=== PATIENT | female | born 1980 ===

== ENCOUNTER 2025-05-15 07:00 | Day surgery (SDC) | payer OTHER ==
[2025-05-05 10:02] VITALS: BP 138/83
[2025-05-05 10:04] LABS: BASO % 0.8 % (0.1-1.2); EOS # 0.06 (0.04-0.54); EOS % 1.3 % (0.7-7.0); LYMPH # 1.66 (1.18-3.74); LYMPH % 34.9 % (19.3-53.1); MEAN PLATELET VOLUME 11.90 fl (9.4-12.4); MONO # 0.27 (0.24-0.82); MONO % 5.7 % (4.7-12.5); NEUT # 2.72 (1.56-6.13); NEUT % 57.3 % (34.0-71.1); RED CELL DISTRIBUTION WIDTH 13.6 % (11.6-14.4); URINE APPEARANCE Clear; URINE BILIRRUBIN Negative (NEGATIVE); URINE BLOOD Negative; URINE COLOR Yellow; URINE GLUCOSE Negative (NEGATIVE); URINE KETONE Negative (NEGATIVE); URINE LEUKOCYTE Negative; URINE NITRATE Negative; URINE PROTEIN Negative (NEGATIVE); URINE UROBILINOGEN 0.2 E.U./dl
[2025-05-05 10:05] LABS: URINE BACTERIA 483.5 uL (0.0-1933); URINE EPITHELIAL CELLS 9.8 uL (0.0-38.8); URINE RBC 3.0 uL (0.0-20.8); URINE WBC 4.9 uL (0.0-23.2)
[2025-05-05 10:20] LABS: URINE CAST 0.14 uL (0.0-1.40)
[2025-05-05 10:37] LABS: INR 1.04
[2025-05-05 10:44] LABS: ALT/SGPT 53.0 U/L (12-78); AST/SGOT 33.0 U/L (15-37); BILIRUBIN TOTAL 1.77 mg/dL (0.3-1.2); BUN CREA RATIO 14.0 (7.0-25.0); CREATININE SERUM 0.77 mg/dL (0.55-1.02); GFR 82.21; GLOBULINA 3.6 G/DL (2.4-3.5); GLUCOSE FASTING 85.0 mg/dL (65-100); OSMOLALITY SERUM 280.0 MOSM/KG (275-295)
[~2025-05-15] VITALS: Ht 175.3 cm; Wt 72.6 kg
[~2025-05-15 07:00] MED LIST: CLIMARA1 EAC5; CLINDAMYCIN PHOSPHATE 150 MG/ML (900mg) IV SCH; PREVACID15 M1
== END 2025-05-15 11:55 | disposition home or self-care (01) ==
LOC: CIR.AMB 07:00
PROVIDERS: ATTEND Student in an Organized Health Care Education/Training Program
DX: K81.1 Chronic cholecystitis (principal)